=== PATIENT | male | born 1990 | race Caucasian/White ===

== ENCOUNTER 2018-11-02 21:51 | Emergency (ER) | payer OTHER ==
[2018-11-02 21:55] VITALS: RESP 16
--- NOTE | 2018-11-02 22:46 | C.PDOC ---
History Of Present Illness 28 year old male presents to the ED c/o right lower molar area for the past week. Patient reports he was taking OTC Tylenol without relief. Patient denies fever, chills, facial swelling, drooling, injury, fall, trauma. Time Seen by Provider: 11/02/18 21:58 Chief Complaint (Nursing): Dental Pain History Per: Patient History/Exam Limitations: no limitations Onset/Duration Of Symptoms: Days Current Symptoms Are (Timing): Still Present Quality: Positive for: "Pain" Recent travel outside of the [place]: No Additional History Per: Patient Past Medical History Reviewed: Historical Data, Nursing Documentation, Vital Signs Vital Signs: Last Vital Signs Temp 98.1 F 11/02/18 21:52 Pulse 71 11/02/18 21:52 Resp 16 11/02/18 21:52 BP 133/89 11/02/18 21:52 Pulse Ox 98 11/02/18 21:52 - Medical History PMH: No Chronic Diseases Surgical History: No Surg Hx Family History: States: Unknown Family Hx - Social History Hx Alcohol Use: No Hx Substance Use: No Review Of Systems Constitutional: Negative for: Fever, Chills ENT: Positive for: Mouth Pain. Negative for: Mouth Swelling Cardiovascular: Negative for: Chest Pain Respiratory: Negative for: Cough, Shortness of Breath Gastrointestinal: Negative for: Nausea, Vomiting, Abdominal Pain Skin: Negative for: Rash Neurological: Negative for: Weakness, Numbness, Altered Mental Status, Dizziness Physical Exam - Physical Exam Appears: Non-toxic, No Acute Distress Skin: Normal Color, Warm, Dry Head: Atraumatic, Normacephalic, No Other (facial or submandibular swelling) Eye(s): bilateral: Normal Inspection, PERRL Oral Mucosa: Moist Tongue: No Swelling Lips: No Swelling Teeth: Tender To Palpation (right lower posterior molar ) Gingiva: No Erythema, No Swelling, No Bleeding, No Abscess Throat: Normal, No Erythema, No Exudate, No Drooling Neck: Normal ROM, Supple Lymphatic: No Adenopathy Extremity: Normal ROM Neurological/Psych: Oriented x3, Normal Speech, Normal Cognition Gait: Steady ED Course And Treatment O2 Sat by Pulse Oximetry: 98 (ON RA) Pulse Ox Interpretation: Normal Progress Note: Plan: - Toradol 15 mg IM. - Viscous Lidocaine 15 ml PO. Patient was given viscous lidocaine to gargle for pain relief. Patient was advised to follow up with Dentist for evaluation. Disposition Counseled Patient/Family Regarding: Diagnosis, Need For Followup, Rx Given - Disposition Referrals: [facility] [Outside] Disposition: HOME/ ROUTINE Disposition Time: 22:44 Condition: STABLE Additional Instructions: Please follow up with LOCAL DENTIST TOMORROW TAKE PAIN MEDICATIONS DIRECTED RETURN TO ER IF WORSE Prescriptions: Ibuprofen [Motrin Tab] 800 mg PO QID #30 tab Instructions: Impacted Tooth (DC), Dental Pain (DC) Forms: [employer] (Bhutanese) - Clinical Impression Clinical Impression: Toothache, Impacted molar - PA / BATTERY TECHNICIAN / Resident Statement MD/DO has reviewed & agrees with the documentation as recorded. - Scribe Statement The provider has reviewed the documentation as recorded by the Scribe Blade Alexis All medical record entries made by the Scribe were at my direction and personally dictated by me. I have reviewed the chart and agree that the record accurately reflects my personal performance of the history, physical exam, medical decision making, and the department course for this patient. I have also personally directed, reviewed, and agree with the discharge instructions and disposition.
[2018-11-02 22:57] VITALS: BP 133/81; PULSE 63; TEMP 98.9
[2018-11-02 23:28] VITALS: O2SAT 98
== END 2018-11-02 22:58 | disposition home or self-care (01) ==
LOC: C.ER 21:51
DX: K01.1 Impacted teeth (principal); K08.89 Other specified disorders of teeth and supporting structures
CPT/HCPCS: 96372; 99283; J1885